=== PATIENT | female | born 1960 | race Caucasian/White ===

== ENCOUNTER → 2022-03-31 | Outpatient (CLI) | payer BC | LOC: HEART 5 03-28 11:30 | DX: R07.9 Chest pain, unspecified (principal); R06.02 Shortness of breath; I51.7 Cardiomegaly; I34.0 Nonrheumatic mitral (valve) insufficiency ==

== ENCOUNTER → 2022-05-16 | Outpatient (CLI) | payer BC | LOC: HEART 5 10:23 | DX: J45.40 Moderate persistent asthma, uncomplicated (principal); R06.02 Shortness of breath | CPT/HCPCS: 94060; 94729; 95012 ==